=== PATIENT | male | born 1955 | race Caucasian/White ===

== ENCOUNTER → 2021-02-10 09:10 | Outpatient (CLI) | payer OTHER, SELFPAY ==
[2021-02-10] MEDS: COVID-19 VACC, Ad26(JANSSEN)/PF 0.5 ML IM (09:18)
== END ==
PROVIDERS: Visit Provider Internal Medicine
DX: Z23 Encounter for immunization (principal)
CPT/HCPCS: 0031A; 91303

== ENCOUNTER → 2023-02-15 14:54 | Outpatient (CLI) | payer MEDICARE, SELFPAY ==
[2023-02-15 20:26] LABS: Add Manual Diff / Slide Review NO; Basophils Absolute Auto 100 /uL (0-100); Basophils Percent Auto 1.2 % (0-2); Eosinophils Absolute Auto 100 /uL (0-450); Eosinophils Percent Auto 1.1 % (2-4); Hematocrit 42.6 % (41-53); Hemoglobin 14.7 g/dL (13.5-17.5); Lymphocytes Absolute Auto 2200 /uL (1100-4500); Lymphocytes Percent Auto 29.2 % (25-40); Mean Corpuscular HGB Conc 34.5 % (30-36); Mean Corpuscular Hemoglobin 32.1 PG (26-34); Monocytes Absolute Auto 600 /uL (0-900); Monocytes Percent Auto 8.4 % (3-14); Neutrophils Absolute Auto 4500 /uL (1500-7000); Neutrophils Percent Auto 60.1 % (50-75); Platelet Count 271 X10^3/uL (150-400); Red Blood Cell Count 4.58 X10^6/uL (4.5-5.9); Red Cell Distribution Width 13.5 % (11.6-14.8); White Blood Cell Count 7.4 X10^3/uL (4.5-11.0)
[2023-02-15 20:58] LABS: Alanine Aminotransferase 28 IU/L (<50); Albumin 4.6 g/dL (3.5-5.0); Albumin Globulin Ratio 1.3 (1.0-2.8); Alkaline Phosphatase 73 U/L (38-126); Aspartate Aminotransferase 26 IU/L (17-59); Bilirubin Total 0.5 mg/dL (0.2-1.3); Blood Urea Nitrogen 21 mg/dL (9-20); Calcium 9.8 mg/dL (8.4-10.2); Carbon Dioxide 25 mmol/L (22-32); Chloride 102 mmol/L (98-107); Cholesterol 261 mg/dL (140-199); Creatine Kinase 210 U/L (55-170); Estimated Glomerular Filt Rate > 60 mL/min (>60); Globulin 3.5 g/dL (1.7-4.1); Glucose 118 mg/dL (80-110); HDL Cholesterol 71 mg/dL (40-60); HEMOLYSIS < 15 (0-50); LDL Cholesterol Calculated 142 mg/dL (<100); Potassium 4.2 mmol/L (3.4-5.1); Sodium 137 mmol/L (137-145); Total Protein 8.1 g/dL (6.3-8.2); Triglycerides 240 mg/dL (35-150)
[2023-02-15 21:10] LABS: Troponin I < 0.012 ng/mL (0.01-0.034)
[2023-02-15 21:13] LABS: CKMB % Relative Index 1.5 % (1.5-5.0); Creatine Kinase MB 3.07 ng/mL (<2.37)
== END ==
PROVIDERS: PCP Physician Assistant; Visit Provider Family Medicine
DX: R07.9 Chest pain, unspecified (principal)
CPT/HCPCS: 80053; 80061; 82550; 82553; 84484; 85025

== ENCOUNTER → 2025-04-13 09:26 | Outpatient (CLI) | payer MEDICARE, SELFPAY ==
[2025-04-13 19:04] LABS: Add Manual Diff / Slide Review NO; Basophils Absolute Auto 100 /uL (0-100); Basophils Percent Auto 1.4 % (0-2); Eosinophils Absolute Auto 100 /uL (0-450); Eosinophils Percent Auto 1.4 % (2-4); Hematocrit 41.1 % (41-53); Hemoglobin 14.1 g/dL (13.5-17.5); Lymphocytes Absolute Auto 1800 /uL (1100-4500); Lymphocytes Percent Auto 32.8 % (25-40); Mean Corpuscular HGB Conc 34.3 % (30-36); Mean Corpuscular Volume 93.3 fL (80-100); Monocytes Absolute Auto 300 /uL (0-900); Monocytes Percent Auto 6.1 % (3-14); Neutrophils Absolute Auto 3200 /uL (1500-7000); Neutrophils Percent Auto 58.3 % (50-75); Platelet Count 238 X10^3/uL (150-400); Red Blood Cell Count 4.41 X10^6/uL (4.5-5.9); Red Cell Distribution Width 14.1 % (11.6-14.8); White Blood Cell Count 5.6 X10^3/uL (4.5-11.0)
[2025-04-13 19:15] LABS: Alanine Aminotransferase 27 IU/L (<50); Albumin 4.4 g/dL (3.5-5.0); Albumin Globulin Ratio 1.6 (1.0-2.8); Alkaline Phosphatase 71 U/L (38-126); Aspartate Aminotransferase 30 IU/L (17-59); Bilirubin Total 0.8 mg/dL (0.2-1.3); Blood Urea Nitrogen 20 mg/dL (9-20); Calcium 9.6 mg/dL (8.4-10.2); Carbon Dioxide 24 mmol/L (22-32); Chloride 106 mmol/L (98-107); Cholesterol 196 mg/dL (140-199); Estimated Glomerular Filt Rate > 60 mL/min (>60); Globulin 2.7 g/dL (1.7-4.1); Glucose 106 mg/dL (70-99); HDL Cholesterol 64 mg/dL (40-60); HEMOLYSIS < 15 (0-50); LDL Cholesterol Calculated 112 mg/dL (<100); Potassium 4.9 mmol/L (3.4-5.1); Sodium 138 mmol/L (137-145); Total Protein 7.1 g/dL (6.3-8.2); Triglycerides 101 mg/dL (35-150)
[2025-04-13 19:43] LABS: Prostate Specific Antigen Scrn 30.7 ng/mL (0.1-4.0)
[2025-04-13 19:49] LABS: Thyroid Stimulating Hormone 1.29 uIU/mL (0.47-4.68)
== END ==
PROVIDERS: PCP Family Medicine; Visit Provider Family Medicine
DX: Z12.5 Encounter for screening for malignant neoplasm of prostate (principal); E78.2 Mixed hyperlipidemia; I10 Essential (primary) hypertension; R00.1 Bradycardia, unspecified; I45.10 Unspecified right bundle-branch block; Z92.89 Personal history of other medical treatment
CPT/HCPCS: 80053; 80061; 84443; 85025; G0103

== ENCOUNTER 2025-05-04 07:37 | Day surgery (SDC) | payer MEDICARE, SELFPAY ==
--- NOTE | 2025-05-04 | PATH_ITS ---
[facility] Accession Number: [id number] No. of containers..01 Tissue . 01 Material submitted: . gastrointestinal site - GASTRIC POLYPS . 01 Diagnosis: GASTRIC POLYPS: Gastric mucosa with minimal chronic inflammation. No Helicobacter organisms identified on H/E stain. No intestinal metaplasia, dysplasia, or malignancy identified. See comment. . Specimen Comments: No definite polyp is seen, although evaluation is somewhat limited by sampling considerations. In some cases the presence of inflammation may correlate with a polypoid appearance on endoscopy. Clinical correlation is recommended. [facility] 05/11/20254 Local . 01 Electronically signed: . Wyatt Presley MD, Pathologist NPI- [id number] . 01 Gross description: . The specimen is received in formalin with two patient identifiers and gastric polyps, and consists of a minute, less than 0.1 cm in greatest dimension white friable soft tissue, which is submitted in toto in cassette A1. (Specimen may fail to process.) ([id number]) /MRV 05/11/20254 Local . 01 Pathologist provided ICD-10: K29.30 . 01 CPT . 069779 Specimen Comment: A courtesy copy of this report has been sent to [phone] Performed at: [address] [facility] [address], [place], [place] [id number] MD Wyatt Presley MD Phone: [phone]
[2025-05-04] MEDS: LACTATED RINGERS 1,000 ML 42 ML IV (07:59)
[2025-05-04 08:10] VITALS: BP 123/73; PULSE 55; RESP 15; TEMP 36.3; O2SAT 97
--- NOTE | 2025-05-04 08:38 | PM.HP.IH.1 ---
History of Present Illness History of Present Illness Date Patient Seen: 05/04/25 Chief complaint: SDC Narrative: Follow-up colorectal cancer screening at a 10 year interval and follow-up of GE reflux [facility] [place] Medical History (Updated 04/27/25 @ 09:00 by Belinda Covington MD) Skin cancer (~2020) Sleep apnea (~1999) Chronic back pain Measles (~1960) GERD (gastroesophageal reflux disease) (~1999) Family History (Updated 02/24/23 @ 19:33 by Sydney Dye) Father Hyperlipidemia Prostate cancer History of heart disease Mother Mental health problem Brother Prostate cancer Grandfather History of heart disease Grandfather History of heart disease Social History Smoking Status: Never smoker alcohol intake: current Meds Home Medications and Allergies Home Medications ?Medication ?Instructions ?Recorded ?Confirmed ?Type omeprazole 20 mg tablet,delayed 20 mg PO DAILY 06/21/21 05/04/25 History release ketoconazole 2 % shampoo ml topical 02/15/23 08/02/23 History aspirin 81 mg tablet,delayed 81 mg PO DAILY 03/08/23 05/04/25 History release (Adult Aspirin Regimen) nitroglycerin 0.4 mg sublingual 0.4 mg sublingual Q5M PRN chest 03/08/23 05/04/25 Rx tablet pain #30 tabs amlodipine 2.5 mg tablet 2.5 mg PO DAILY Chest pain #90 tabs 03/05/25 05/04/25 Rx rosuvastatin 20 mg tablet 20 mg PO .QHS cholesterol. 04/27/25 05/04/25 Rx prevents heart attack /stroke #90 tabs Allergies Allergy/AdvReac Type Severity Reaction Status Date / Time No Known Drug Allergies Allergy Verified 05/04/25 08:02 Exam Vital Signs (past 8 hours): - 05/04/25 08:10 Temperature 97.3 F L Pulse Rate 55 L Respiratory Rate 15 Blood Pressure 123/73 Pulse Oximetry 97 Oxygen Delivery Method Room Air Oxygen Delivery Method Room Air Narrative Exam Narrative: Oropharynx free of lesions Assessment & Plan Assessment & Plan narrative: Need for follow-up colorectal cancer screening at a 10 year interval. Risks, benefits, alternatives have been explained. In addition patient has trouble with GERD under good control however needs follow-up to ensure that there is no underlying esophagitis. Risks, benefits, alternatives have been explained. Time-Based Coding :: [TOTAL MINUTES] spent with patient and on the chart (including review of chart, obtaining history, exam, reviewing outside data, placing orders, documenting exam and treatment plan, and counseling patient) on [DATE]. PROFEE Certified Medical Assistant Document charge(s): No
--- NOTE | 2025-05-04 08:39 | PM.OP.EC ---
Operative Date/Time/Diagnoses Date of procedure: 05/04/25 Time of procedure: 09:43 Pre-op diagnosis: See indication and findings Post-op diagnosis: same Procedure & Clinicians Study performed: EGD and colonoscopy Same procedure(s) as scheduled: Yes Indications: Follow-up GE reflux and follow-up colorectal cancer screening Surgeon: Estelle Guzman Procedure Notes Procedure in detail: After informed consent was obtained the patient was placed in left lateral decubitus position. The video upper scope was placed into the oropharynx and with the patient's help swallowed into the esophagus. The esophagus stomach and duodenal were carefully examined. On withdrawal, retroflexed view the GE junction was performed. The scope was removed. The patient tolerated procedure well. Patient was then turned in the colonoscope was substituted. The scope was easily passed to the cecum. On slow withdrawal mucosa was carefully examined. The scope was removed. The patient tolerated procedure well. Blood loss none Complications none Sedation mac Findings EGD 1. Small to medium size polyps in the gastric body biopsies taken 2. Otherwise negative EGD Colonoscopy 1. Negative colonoscopy to cecum Patient should have follow-up colonoscopy in 5-10 years. He does not need follow-up EGD and there is no real evidence of erosive esophagitis.
--- NOTE | 2025-05-04 09:25 | SUR.OPER ---
GASTROSCOPE 141 COLONOSCOPE 797
--- NOTE | 2025-05-04 09:30 | SUR.OPER ---
EGD END 921 COLONOSCOPE START 923
[2025-05-04 09:45] VITALS: BP 101/61; PULSE 61; RESP 15; TEMP 35.9; O2SAT 96
[2025-05-04 09:51] VITALS: BP 98/64; PULSE 71; RESP 16; O2SAT 93
[2025-05-04 09:56] VITALS: BP 102/69; PULSE 62; RESP 14; TEMP 36.2; O2SAT 96
== END 2025-05-04 10:25 | disposition home or self-care (01) ==
PROVIDERS: PCP Family Medicine; Referring Provider Internal Medicine Gastroenterology; Visit Provider Internal Medicine Gastroenterology
PROC: 0DJ08ZZ Inspection of Upper Intestinal Tract, Via Natural or Artificial Opening Endoscopic (ICD-10-PCS; CPT 43239; principal; 2025-05-04 09:00)
PROC: 0DJD8ZZ Inspection of Lower Intestinal Tract, Via Natural or Artificial Opening Endoscopic (ICD-10-PCS; CPT 45378; 2025-05-04 09:00)
DX: Z12.11 Encounter for screening for malignant neoplasm of colon (principal); K31.7 Polyp of stomach and duodenum; K21.9 Gastro-esophageal reflux disease without esophagitis; I10 Essential (primary) hypertension; I20.9 Angina pectoris, unspecified; G47.33 Obstructive sleep apnea (adult) (pediatric); Z85.828 Personal history of other malignant neoplasm of skin
CPT/HCPCS: 43239; G0121; J2405; J2704

== ENCOUNTER → 2025-07-13 13:17 | Outpatient (CLI) | payer MEDICARE, SELFPAY ==
[2025-07-13 19:42] LABS: Cholesterol 169 mg/dL (140-199); HDL Cholesterol 53 mg/dL (40-60); Triglycerides 150 mg/dL (35-150)
[2025-07-13 20:10] LABS: Prostate Specific Antigen 35.6 ng/mL (0.10-4.00)
== END ==
PROVIDERS: Urology; PCP Family Medicine; Visit Provider Family Medicine
DX: E78.2 Mixed hyperlipidemia (principal); R97.20 Elevated prostate specific antigen [PSA]
CPT/HCPCS: 80061; 84153

== ENCOUNTER → 2025-07-27 12:02 | Outpatient (CLI) | payer MEDICARE, SELFPAY ==
--- NOTE | 2025-07-27 12:04 | DI.MRI.S_ITS ---
PROCEDURE: MR PELVIC PROSTATE PROTOCOL INDICATIONS: Elevated PSA TECHNIQUE: Coronal HASTE, axial T1 FSE with fat saturation, 3-plane nonbreath-hold T2 FSE. After the administration of contrast, dynamic axial, delayed axial and coronal VIBE or 2-D FLASH with fat saturation through the pelvis. Diffusion weighted imaging and ADC was performed. COMPARISON: None. FINDINGS: Image quality: Diffusion weighted and dynamic contrast enhanced images are diagnostic. Prostate: Gland size is 5.3 x 5.6 x 3.9 cm; ellipsoid gland volume is 60 mL. PSA density: 0.58, suspicious. Hypertrophy of the transition zone Lesion 1: Location: Left peripheral zone, medial, mid gland, on axial series 5, image 13 and coronal series 6, image 16. Size: 1.5 x 0.8 cm. T2W signal: Hypointense. DWI signal: Markedly hyperintense. ADC signal: Markedly hypointense. Enhancement: Yes. Extracapsular extension: No. No neurovascular involvement. PI-RADS score: 5 Lesion 2: Location: Anterior peripheral zone, right of midline, base, on axial series 5, image 9 and sagittal series 3, image 11. Size: 1.2 x 0.8 cm. T2W signal: Partially capsulated, hypointense. DWI signal: Markedly hyperintense. ADC signal: Markedly hypointense. Enhancement: Yes. Extracapsular extension: No. No neurovascular involvement. PI-RADS score: 3 Genitourinary system: Bladder wall thickness is normal. Distal ureters are non distended. Bowel and peritoneum: No pathologic free pelvic fluid. Inferior colon and small bowel loops are normal in caliber. Nodes and vessels: No pelvic or inguinal adenopathy by size criteria. Iliac vessels are normal in caliber. Soft tissues: Small right indirect inguinal hernia containing fat. Bones: Marrow demonstrates normal overall signal, without lesions to suggest metastases. IMPRESSION: Elevated PSA density, with PI-RADS 3 and 5 lesions as above. No pelvic lymphadenopathy by size criteria. No aggressive osseous abnormality. Dictated by: Archie Collins M.D. on 07/27/2025 at 15:10 Approved by: Archie Collins M.D. on 07/27/2025 at 15:15
== END ==
PROVIDERS: PCP Family Medicine; Referring Provider Family Medicine; Visit Provider Urology
DX: N42.9 Disorder of prostate, unspecified (principal); K40.90 Unilateral inguinal hernia, without obstruction or gangrene, not specified as recurrent; R97.20 Elevated prostate specific antigen [PSA]
CPT/HCPCS: 72197; A9579